=== PATIENT | female | born 1955 | race Caucasian/White ===

== ENCOUNTER 2022-03-25 09:44 | Inpatient (IN) ==
[2022-03-25] MEDS ORDERED: GLUCAGON 1 MG VIAL IM PRN (12:15)
[2022-03-25] MEDS ORDERED: DOCUSATE SODIUM 100 MG CAPSULE PO PRN (12:15)
[2022-03-25] MEDS ORDERED: ACETAMINOPHEN 325 MG TABLET PO PRN (12:15)
[2022-03-25] MEDS ORDERED: DEXTROSE 10% 250 ML BAG IV PRN (12:40)
[2022-03-25 12:42] LABS: Basophils % 0.3 % (0.0-0.8); Eosinophils % 0.3 % (0.00-10.9); Hematocrit 35.8 VOL% (35.7-47.0); Hemoglobin 11.4 GM/DL (12.0-16.0); Immature Granulocytes % 0.5 %; Immature Granulocytes Absolute 0.07 #; Lymphocytes % 6.6 % (21.3-54.2); Mean Corpuscular HGB Conc 31.8 GM/DL (32-36); Mean Corpuscular Volume 94.2 FL (87-102); Mean Platelet Volume 10.6 FL (9.6-12.0); Monocytes # 0.7 10*3/uL (0.11-0.8); Neutrophils % 87.3 % (38.7-73.9); Platelet Count 286 T/CUMM (130-400); Red Cell Distribution Width 13.2 % (9.3-17.3); White Blood Count 14.7 T/CUMM (4-12)
[2022-03-25 12:51] LABS: INR 0.9; PT Patient Result 10.3 SECS (10.5-12.0); Partial Thromboplastin Time 25.9 SECS (23.7-32.9)
[2022-03-25 13:03] LABS: Albumin 3.3 G/DL (3.4-5.0); Bilirubin,Total 0.4 MG/DL (0.20-1.00); Calcium 8.9 MG/DL (8.5-10.1); Osmolality,Calculated 279.7 MOS/KG (273-304); Potassium 3.5 MMOL/L (3.5-5.1); Total Protein 6.2 G/DL (6.4-8.2)
[2022-03-25] MEDS ORDERED: ENOXAPARIN 40 MG/0.4 ML SYRINGE SUBCUT ONE (13:39)
[2022-03-25] MEDS: MORPHINE 2 MG/1 ML SYRINGE IV PRN ×2 (18:02→23:19)
[2022-03-25] MEDS: ONDANSETRON 4 MG/2 ML VIAL IV PRN (23:18)
[2022-03-26] MEDS: MORPHINE 2 MG/1 ML SYRINGE IV PRN (04:41)
[2022-03-26] MEDS: ONDANSETRON 4 MG/2 ML VIAL IV PRN (04:41)
[2022-03-26 05:17] LABS: Basophils % 0.3 % (0.0-0.8); Eosinophils % 0.4 % (0.00-10.9); Hematocrit 35.7 VOL% (35.7-47.0); Hemoglobin 11.5 GM/DL (12.0-16.0); Immature Granulocytes % 0.4 %; Immature Granulocytes Absolute 0.04 #; Lymphocytes # 1.3 10*3/uL (1.4-4.0); Lymphocytes % 13.7 % (21.3-54.2); Mean Corpuscular HGB Conc 32.2 GM/DL (32-36); Mean Corpuscular Volume 92.2 FL (87-102); Mean Platelet Volume 11.5 FL (9.6-12.0); Monocytes # 0.7 10*3/uL (0.11-0.8); Monocytes % 8.1 % (1.7-12.7); Neutrophils % 77.1 % (38.7-73.9); Platelet Count 259 T/CUMM (130-400); Red Blood Count 3.87 MC/CUMM (3.8-5.5); Red Cell Distribution Width 13.1 % (9.3-17.3); White Blood Count 9.2 T/CUMM (4-12)
[2022-03-26 05:45] LABS: Calcium 9.3 MG/DL (8.5-10.1); Osmolality,Calculated 273.8 MOS/KG (273-304); Potassium 4.1 MMOL/L (3.5-5.1)
[2022-03-26] MEDS: PANTOPRAZOLE 40 MG TABLET PO SCH (09:24)
[2022-03-26] MEDS ORDERED: MECLIZINE 25 MG TABLET PO PRN (13:13)
[2022-03-26] MEDS ORDERED: OLANZapine ODT 5 MG TABLET PO PRN (13:13)
[2022-03-26] MEDS ORDERED: ENOXAPARIN 40 MG/0.4 ML SYRINGE SUBCUT ONE (14:00)
[2022-03-26] MEDS: CARBIDOPA/LEVODOPA 25-100 MG TABLET PO SCH ×2 (14:16→20:59)
[2022-03-26] MEDS: DONEPEZIL 10 MG TABLET PO SCH (20:59)
[2022-03-26] MEDS: MEMANTINE 10 MG TABLET PO SCH (20:59)
[2022-03-26] MEDS: QUEtiapine 25 MG TABLET PO SCH (20:59)
[2022-03-26] MEDS: tiZANidine 4 MG TABLET PO SCH (21:00)
[2022-03-27 05:31] LABS: Basophils % 0.2 % (0.0-0.8); Eosinophils # 0.1 10*3/uL (0.0-0.87); Eosinophils % 0.7 % (0.00-10.9); Hematocrit 34.8 VOL% (35.7-47.0); Hemoglobin 11.2 GM/DL (12.0-16.0); Immature Granulocytes % 0.3 %; Immature Granulocytes Absolute 0.03 #; Lymphocytes % 11.7 % (21.3-54.2); Mean Corpuscular HGB Conc 32.2 GM/DL (32-36); Mean Corpuscular Volume 91.6 FL (87-102); Mean Platelet Volume 11.6 FL (9.6-12.0); Monocytes % 11.5 % (1.7-12.7); Neutrophils % 75.6 % (38.7-73.9); Platelet Count 230 T/CUMM (130-400); Red Cell Distribution Width 13.1 % (9.3-17.3); White Blood Count 8.7 T/CUMM (4-12)
[2022-03-27 05:58] LABS: Calcium 8.8 MG/DL (8.5-10.1); Osmolality,Calculated 276.7 MOS/KG (273-304); Potassium 3.8 MMOL/L (3.5-5.1)
[2022-03-27] MEDS: CARBIDOPA/LEVODOPA 25-100 MG TABLET PO SCH ×3 (08:23→20:39)
[2022-03-27] MEDS: MEMANTINE 10 MG TABLET PO SCH ×2 (08:23→20:39)
[2022-03-27] MEDS: PANTOPRAZOLE 40 MG TABLET PO SCH (08:23)
[2022-03-27] MEDS: MORPHINE 2 MG/1 ML SYRINGE IV PRN ×2 (13:26→17:18)
[2022-03-27] MEDS ORDERED: propofoL 200 MG/20 ML VIAL IV ONE (14:33)
[2022-03-27] MEDS ORDERED: LIDOCAINE 2% 5 ML VIAL ONE (14:33)
[2022-03-27] MEDS ORDERED: ROCURONIUM 50 MG/5 ML VIAL IV ONE (14:33)
[2022-03-27] MEDS ORDERED: fentaNYL 100 MCG/2 ML VIAL ONE (14:33)
[2022-03-27] MEDS ORDERED: SEVOFLURANE 1 UNIT/15 MINUTE INH ONE (14:38)
[2022-03-27] MEDS: DONEPEZIL 10 MG TABLET PO SCH (20:39)
[2022-03-27] MEDS: QUEtiapine 25 MG TABLET PO SCH (20:39)
[2022-03-27] MEDS: tiZANidine 4 MG TABLET PO SCH (20:40)
[2022-03-28 04:42] LABS: Basophils % 0.1 % (0.0-0.8); Eosinophils % 0.1 % (0.00-10.9); Hematocrit 34.9 VOL% (35.7-47.0); Hemoglobin 11.2 GM/DL (12.0-16.0); Immature Granulocytes % 0.4 %; Immature Granulocytes Absolute 0.05 #; Lymphocytes # 0.8 10*3/uL (1.4-4.0); Lymphocytes % 5.7 % (21.3-54.2); Mean Corpuscular HGB Conc 32.1 GM/DL (32-36); Mean Corpuscular Volume 91.1 FL (87-102); Monocytes # 1.1 10*3/uL (0.11-0.8); Neutrophils % 85.7 % (38.7-73.9); Platelet Count 230 T/CUMM (130-400); Red Blood Count 3.83 MC/CUMM (3.8-5.5); Red Cell Distribution Width 13.2 % (9.3-17.3); White Blood Count 13.4 T/CUMM (4-12)
[2022-03-28 05:07] LABS: Calcium 9.5 MG/DL (8.5-10.1); Osmolality,Calculated 276.8 MOS/KG (273-304); Potassium 4.1 MMOL/L (3.5-5.1)
[2022-03-28] MEDS: MEMANTINE 10 MG TABLET PO SCH ×3 (08:20→21:08)
[2022-03-28] MEDS: PANTOPRAZOLE 40 MG TABLET PO SCH ×2 (08:20→08:21)
[2022-03-28] MEDS: CARBIDOPA/LEVODOPA 25-100 MG TABLET PO SCH ×3 (08:20→21:08)
[2022-03-28] MEDS: CHOLECALCIFEROL 5,000 UNIT TABLET PO SCH (08:23)
[2022-03-28] MEDS ORDERED: OLANZapine ODT 5 MG TABLET PO PRN (11:10)
[2022-03-28] MEDS: ENOXAPARIN 40 MG/0.4 ML SYRINGE SUBCUT SCH (12:14)
[2022-03-28] MEDS: MORPHINE 2 MG/1 ML SYRINGE IV PRN (15:46)
[2022-03-28] MEDS: DONEPEZIL 10 MG TABLET PO SCH (21:08)
[2022-03-28] MEDS: traZODone 50 MG TABLET PO SCH (21:08)
[2022-03-28] MEDS: tiZANidine 4 MG TABLET PO SCH (21:08)
[2022-03-28] MEDS: QUEtiapine 25 MG TABLET PO SCH (21:08)
[2022-03-29 05:09] LABS: Basophils % 0.2 % (0.0-0.8); Eosinophils % 0.2 % (0.00-10.9); Hematocrit 35.1 VOL% (35.7-47.0); Hemoglobin 11.3 GM/DL (12.0-16.0); Immature Granulocytes % 0.4 %; Immature Granulocytes Absolute 0.04 #; Lymphocytes # 0.4 10*3/uL (1.4-4.0); Lymphocytes % 4.5 % (21.3-54.2); Mean Corpuscular HGB Conc 32.2 GM/DL (32-36); Mean Corpuscular Volume 92.1 FL (87-102); Mean Platelet Volume 11.3 FL (9.6-12.0); Monocytes # 0.8 10*3/uL (0.11-0.8); Monocytes % 8.8 % (1.7-12.7); Neutrophils % 85.9 % (38.7-73.9); Platelet Count 285 T/CUMM (130-400); Red Blood Count 3.81 MC/CUMM (3.8-5.5); Red Cell Distribution Width 13.3 % (9.3-17.3); White Blood Count 9.4 T/CUMM (4-12)
[2022-03-29 05:28] LABS: Calcium 9.7 MG/DL (8.5-10.1); Osmolality,Calculated 283.5 MOS/KG (273-304)
[2022-03-29 05:30] LABS: Lymphocytes 4 % (20-55); Total Cells Counted 100
[2022-03-29 05:31] LABS: Platelet Estimate Adequate
[2022-03-29] MEDS: PANTOPRAZOLE 40 MG TABLET PO SCH (08:19)
[2022-03-29] MEDS: CARBIDOPA/LEVODOPA 25-100 MG TABLET PO SCH ×2 (08:19→14:18)
[2022-03-29] MEDS: CHOLECALCIFEROL 5,000 UNIT TABLET PO SCH (08:19)
[2022-03-29] MEDS: MEMANTINE 10 MG TABLET PO SCH (08:20)
[2022-03-29] MEDS ORDERED: TUBERCULIN SKIN TEST 0.1 ML SYRINGE INTRADERM ONE (10:00)
[2022-03-29] MEDS: MORPHINE 2 MG/1 ML SYRINGE IV PRN (10:24)
[2022-03-29] MEDS ORDERED: LIDOCAINE 2% 5 ML VIAL ONE (14:21)
[2022-03-29] MEDS ORDERED: ROCURONIUM 50 MG/5 ML VIAL IV ONE (14:21)
[2022-03-29] MEDS ORDERED: fentaNYL 100 MCG/2 ML VIAL ONE (14:21)
[2022-03-29] MEDS ORDERED: propofoL 200 MG/20 ML VIAL IV ONE (14:21)
[2022-03-29] MEDS ORDERED: DEXAMETHASONE 4 MG/1 ML VIAL ONE (14:27)
[2022-03-29] MEDS ORDERED: ROPIVACAINE 0.5% 30 ML VIAL ONE (14:27)
[2022-03-29] MEDS ORDERED: LIDOCAINE 1% 5 ML VIAL ONE (14:27)
[2022-03-29] MEDS ORDERED: buprenorphine HCL 0.3 MG/ML VIAL ONE (15:48)
[2022-03-29] MEDS ORDERED: BUPIVACAINE SPINAL 0.75% 2 ML AMP SPINAL ONE (15:48)
[2022-03-29] MEDS ORDERED: diphenhydrAMINE 50 MG/1 ML VIAL ONE (16:07)
[2022-03-29] MEDS ORDERED: ceFAZolin 1,000 MG VIAL ONE (16:22)
[2022-03-29] MEDS ORDERED: PHENYLEPHRINE 1 MG/10 ML SYRINGE IV ONE ×3 (16:38→17:49)
[2022-03-29] MEDS ORDERED: ePHEDrine 50 MG/ML VIAL ONE (16:38)
[2022-03-30] MEDS: DONEPEZIL 10 MG TABLET PO SCH ×2 (01:25→21:37)
[2022-03-30] MEDS: CARBIDOPA/LEVODOPA 25-100 MG TABLET PO SCH ×4 (01:26→21:37)
[2022-03-30] MEDS: QUEtiapine 25 MG TABLET PO SCH ×2 (01:26→21:37)
[2022-03-30] MEDS: MEMANTINE 10 MG TABLET PO SCH ×3 (01:26→21:37)
[2022-03-30] MEDS: tiZANidine 4 MG TABLET PO SCH ×2 (01:26→21:37)
[2022-03-30] MEDS: traZODone 50 MG TABLET PO SCH ×2 (01:26→21:37)
[2022-03-30 06:17] LABS: Basophils % 0.1 % (0.0-0.8); Hematocrit 33.7 VOL% (35.7-47.0); Hemoglobin 10.3 GM/DL (12.0-16.0); Immature Granulocytes % 0.3 %; Immature Granulocytes Absolute 0.02 #; Lymphocytes # 0.3 10*3/uL (1.4-4.0); Lymphocytes % 3.5 % (21.3-54.2); Mean Corpuscular HGB Conc 30.6 GM/DL (32-36); Mean Corpuscular Volume 93.6 FL (87-102); Mean Platelet Volume 11.3 FL (9.6-12.0); Monocytes # 0.7 10*3/uL (0.11-0.8); Monocytes % 9.1 % (1.7-12.7); Platelet Count 281 T/CUMM (130-400); Red Cell Distribution Width 13.2 % (9.3-17.3); White Blood Count 7.7 T/CUMM (4-12)
[2022-03-30 06:29] LABS: Calcium 9.5 MG/DL (8.5-10.1); Osmolality,Calculated 290.3 MOS/KG (273-304); Potassium 4.5 MMOL/L (3.5-5.1)
[2022-03-30 06:38] LABS: Band Neutrophils 12 % (0-10); Eosinophils 1 % (0-10); Lymphocytes 3 % (20-55); Total Cells Counted 100
[2022-03-30 06:39] LABS: Microcytosis Slight; Ovalocytes Slight; Platelet Estimate Normal
[2022-03-30] MEDS: PANTOPRAZOLE 40 MG TABLET PO SCH (09:22)
[2022-03-30] MEDS: CHOLECALCIFEROL 5,000 UNIT TABLET PO SCH ×2 (09:22→21:38)
[2022-03-30] MEDS: LACTATED RINGERS 1,000 ML IV SCH ×2 (11:48→21:36)
[2022-03-30] MEDS: ENOXAPARIN 40 MG/0.4 ML SYRINGE SUBCUT SCH (12:39)
[2022-03-30] MEDS: MORPHINE 2 MG/1 ML SYRINGE IV PRN (14:50)
[2022-03-31 06:09] LABS: Basophils % 0.2 % (0.0-0.8); Eosinophils # 0.1 10*3/uL (0.0-0.87); Eosinophils % 0.9 % (0.00-10.9); Hematocrit 29.9 VOL% (35.7-47.0); Hemoglobin 9.4 GM/DL (12.0-16.0); Immature Granulocytes % 0.5 %; Immature Granulocytes Absolute 0.05 #; Lymphocytes # 0.9 10*3/uL (1.4-4.0); Lymphocytes % 8.4 % (21.3-54.2); Mean Corpuscular HGB Conc 31.4 GM/DL (32-36); Mean Corpuscular Volume 93.4 FL (87-102); Mean Platelet Volume 10.8 FL (9.6-12.0); Monocytes # 0.8 10*3/uL (0.11-0.8); Monocytes % 7.2 % (1.7-12.7); Neutrophils % 82.8 % (38.7-73.9); Platelet Count 276 T/CUMM (130-400); Red Cell Distribution Width 13.2 % (9.3-17.3); White Blood Count 11.1 T/CUMM (4-12)
[2022-03-31 06:19] LABS: Calcium 9.3 MG/DL (8.5-10.1); Potassium 4.1 MMOL/L (3.5-5.1)
[2022-03-31] MEDS: LACTATED RINGERS 1,000 ML IV SCH ×2 (06:31→16:23)
[2022-03-31 07:12] LABS: Band Neutrophils 19 % (0-10); Eosinophils 1 % (0-10); Lymphocytes 8 % (20-55); Platelet Estimate Normal; Total Cells Counted 100
[2022-03-31 07:13] LABS: Anisocytosis 1+; Basophilic Stippling Slight
[2022-03-31] MEDS: CARBIDOPA/LEVODOPA 25-100 MG TABLET PO SCH ×3 (09:45→21:18)
[2022-03-31] MEDS: CHOLECALCIFEROL 5,000 UNIT TABLET PO SCH ×2 (09:45→21:17)
[2022-03-31] MEDS: PANTOPRAZOLE 40 MG TABLET PO SCH (09:45)
[2022-03-31] MEDS: MEMANTINE 10 MG TABLET PO SCH ×2 (09:45→21:17)
[2022-03-31] MEDS: ENOXAPARIN 40 MG/0.4 ML SYRINGE SUBCUT SCH (13:45)
[2022-03-31] MEDS: QUEtiapine 25 MG TABLET PO SCH (21:17)
[2022-03-31] MEDS: DONEPEZIL 10 MG TABLET PO SCH (21:17)
[2022-03-31] MEDS: traZODone 50 MG TABLET PO SCH (21:18)
[2022-03-31] MEDS: tiZANidine 4 MG TABLET PO SCH (21:18)
[2022-03-31] MEDS: MORPHINE 2 MG/1 ML SYRINGE IV PRN (21:40)
[2022-04-01] MEDS: LACTATED RINGERS 1,000 ML IV SCH ×4 (01:11→20:52)
[2022-04-01 06:36] LABS: Basophils % 0.3 % (0.0-0.8); Eosinophils # 0.2 10*3/uL (0.0-0.87); Hematocrit 29.3 VOL% (35.7-47.0); Hemoglobin 9.3 GM/DL (12.0-16.0); Immature Granulocytes % 0.6 %; Immature Granulocytes Absolute 0.07 #; Lymphocytes # 1.4 10*3/uL (1.4-4.0); Lymphocytes % 12.4 % (21.3-54.2); Mean Corpuscular HGB Conc 31.7 GM/DL (32-36); Mean Corpuscular Volume 92.7 FL (87-102); Mean Platelet Volume 10.5 FL (9.6-12.0); Monocytes # 0.9 10*3/uL (0.11-0.8); Monocytes % 7.8 % (1.7-12.7); Neutrophils % 76.9 % (38.7-73.9); Platelet Count 309 T/CUMM (130-400); Red Blood Count 3.16 MC/CUMM (3.8-5.5); Red Cell Distribution Width 13.2 % (9.3-17.3)
[2022-04-01 06:51] LABS: Calcium 9.1 MG/DL (8.5-10.1); Osmolality,Calculated 283.3 MOS/KG (273-304)
[2022-04-01] MEDS: MEMANTINE 10 MG TABLET PO SCH ×2 (09:20→20:53)
[2022-04-01] MEDS: PANTOPRAZOLE 40 MG TABLET PO SCH (09:20)
[2022-04-01] MEDS: CARBIDOPA/LEVODOPA 25-100 MG TABLET PO SCH ×3 (09:20→20:53)
[2022-04-01] MEDS: CHOLECALCIFEROL 5,000 UNIT TABLET PO SCH ×2 (09:20→20:53)
[2022-04-01] MEDS: RIVASTIGMINE 4.6 MG/24 HR PATCH TRANSDERM SCH (12:26)
[2022-04-01] MEDS: ENOXAPARIN 40 MG/0.4 ML SYRINGE SUBCUT SCH (12:27)
[2022-04-01] MEDS: QUEtiapine 25 MG TABLET PO SCH (20:53)
[2022-04-01] MEDS: tiZANidine 4 MG TABLET PO SCH (20:53)
[2022-04-01] MEDS: traZODone 50 MG TABLET PO SCH (20:53)
[2022-04-02] MEDS: MEMANTINE 10 MG TABLET PO SCH ×2 (09:08→21:37)
[2022-04-02] MEDS: CHOLECALCIFEROL 5,000 UNIT TABLET PO SCH ×2 (09:08→21:38)
[2022-04-02] MEDS: RIVASTIGMINE 4.6 MG/24 HR PATCH TRANSDERM SCH (09:08)
[2022-04-02] MEDS: CARBIDOPA/LEVODOPA 25-100 MG TABLET PO SCH ×3 (09:08→21:37)
[2022-04-02] MEDS: LACTATED RINGERS 1,000 ML IV SCH ×2 (09:08→19:04)
[2022-04-02] MEDS: PANTOPRAZOLE 40 MG TABLET PO SCH (09:08)
[2022-04-02] MEDS: ENOXAPARIN 40 MG/0.4 ML SYRINGE SUBCUT SCH (11:49)
[2022-04-02] MEDS: ZINC OXIDE 16% PASTE 57 GM TUBE TOP SCH ×2 (16:45→22:00)
[2022-04-02] MEDS: QUEtiapine 25 MG TABLET PO SCH (21:37)
[2022-04-02] MEDS: tiZANidine 4 MG TABLET PO SCH (21:37)
[2022-04-02] MEDS: traZODone 50 MG TABLET PO SCH (21:38)
[2022-04-03] MEDS: LACTATED RINGERS 1,000 ML IV SCH ×2 (05:35→15:16)
[2022-04-03] MEDS: CARBIDOPA/LEVODOPA 25-100 MG TABLET PO SCH ×3 (09:26→21:24)
[2022-04-03] MEDS: PANTOPRAZOLE 40 MG TABLET PO SCH (09:26)
[2022-04-03] MEDS: RIVASTIGMINE 4.6 MG/24 HR PATCH TRANSDERM SCH (09:26)
[2022-04-03] MEDS: MEMANTINE 10 MG TABLET PO SCH ×2 (09:26→21:23)
[2022-04-03] MEDS: ZINC OXIDE 16% PASTE 57 GM TUBE TOP SCH ×2 (09:26→21:36)
[2022-04-03] MEDS: CHOLECALCIFEROL 5,000 UNIT TABLET PO SCH ×2 (09:28→21:23)
[2022-04-03] MEDS: ENOXAPARIN 40 MG/0.4 ML SYRINGE SUBCUT SCH (11:40)
[2022-04-03] MEDS: QUEtiapine 25 MG TABLET PO SCH (21:23)
[2022-04-03] MEDS: traZODone 50 MG TABLET PO SCH (21:23)
[2022-04-03] MEDS: tiZANidine 4 MG TABLET PO SCH (21:24)
[2022-04-04] MEDS: PANTOPRAZOLE 40 MG TABLET PO SCH (09:55)
[2022-04-04] MEDS: MEMANTINE 10 MG TABLET PO SCH (09:55)
[2022-04-04] MEDS: RIVASTIGMINE 4.6 MG/24 HR PATCH TRANSDERM SCH (09:55)
[2022-04-04] MEDS: ZINC OXIDE 16% PASTE 57 GM TUBE TOP SCH (09:56)
[2022-04-04] MEDS: CARBIDOPA/LEVODOPA 25-100 MG TABLET PO SCH (09:56)
[2022-04-04] MEDS: LACTATED RINGERS 1,000 ML IV SCH (10:01)
[2022-04-04] MEDS: CHOLECALCIFEROL 5,000 UNIT TABLET PO SCH (10:01)
[2022-04-04] MEDS: ENOXAPARIN 40 MG/0.4 ML SYRINGE SUBCUT SCH (11:55)
[2022-04-04 12:03] VITALS: BP 138/70
== END 2022-04-04 16:59 | disposition hospice, inpatient (51) | DRG 522 ==
LOC: SUATTDRO 10:54 → N.3E 10:54
PROVIDERS: ADMIT Internal Medicine; ATTEND Internal Medicine